=== PATIENT | male | born 1970 | race Hispanic/Latino ===

== ENCOUNTER 2021-08-21 10:43 | Emergency (ER) | payer SELFPAY ==
--- NOTE | 2021-08-21 11:17 | RAD REPORT ---
EXAM DESCRIPTION: RAD - Knee Right 3 View - 08/21/2021 11:12 am CLINICAL HISTORY: PAIN COMPARISON: No comparisons FINDINGS: No acute fracture or dislocation is seen.
--- NOTE | 2021-08-21 11:17 | RAD REPORT ---
EXAM DESCRIPTION: RAD - Knee Left 3 View - 08/21/2021 11:12 am CLINICAL HISTORY: PAIN COMPARISON: No comparisons FINDINGS: No fracture or dislocation seen.
--- NOTE | 2021-08-21 11:18 | RAD REPORT ---
EXAM DESCRIPTION: RAD - Ankle Right 3 View - 08/21/2021 11:12 am CLINICAL HISTORY: PAIN COMPARISON: No comparisons FINDINGS: Central depression type mildly comminuted calcaneus fracture is present. Subtalar dislocat ion is not evident.
[2021-08-21] MEDS ORDERED: MORPHINE 4 MG/ML SYR ONE (11:24)
[2021-08-21] MEDS ORDERED: ONDANSETRON 4 MG/2 ML VIAL ONE (11:24)
[2021-08-21 11:38] LABS: Absolute Lymphocytes (CBC) 1.6 K/uL (0.7-4.9); Hematocrit 41.2 % (39.6-49.0); Lymphocytes % 18.5 % (15.3-44.8); MPV 8.6 fL (7.6-11.3); RBC Red Blood Cell Count 4.62 M/uL (4.33-5.43)
[2021-08-21 11:57] LABS: Albumin 3.7 g/dL (3.4-5.0); Bilirubin Total 0.5 mg/dL (0.2-1.0); Potassium 3.7 mmol/L (3.5-5.1); Protein, Total 7.4 g/dL (6.4-8.2)
--- NOTE | 2021-08-21 12:41 | RAD REPORT ---
EXAM DESCRIPTION: CT - Knee Left Wo Con - 08/21/2021 12:20 pm CLINICAL HISTORY: Left knee pain and swelling status post fall COMPARISON: X-ray August 21, 2021 TECHNIQUE: Computed axial tomography left obtained All CT scans are performed using dose optimization technique as appropriate and may include automated exposure control or mA/KV adjustment according to patient size. FINDINGS: A minimally displaced fracture medial tibial plateau extending into the tibial spine. Moderate hemarthrosis No dislocation 2.2 centimeter lucency within the tibial plateau with a sclerotic border IMPRESSION: Minimally displaced tibial fracture 2.2 centimeter lucency within the tibial plateau with a sclerotic border may be the sequela of the fr acture or represent avascular necrosis or subchondral cyst
[2021-08-21] MEDS ORDERED: KETOROLAC 30 MG/ML INJ ONE (13:28)
--- NOTE | 2021-08-21 13:39 | EDPHYS ---
Physician Documentation [facility] Name: Rajesh Munoz Age: 50 yrs Sex: Male : 1970 Arrival Date: 08/21/2021 Time: 10:52 Bed 12 Private MD: ED Physician Kev Stratton HPI: 08/21 10:55 This 50 yrs old Male presents to ER via EMS with complaints of Left knee pain pm1 and right ankle pain. 10:55 Trauma demographics: Location of Injury: The injury occurred at work. Mechanism of pm1 injury: Fall: the patient fell Scaffolding, approximately approximately 8 feet, and struck a concrete surface. Associated injuries: The patient sustained right ankle and left knee. Onset: The symptoms/episode began/occurred just prior to arrival. The patient has not experienced similar symptoms in the past. The patient has not recently seen a physician. 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 Patient landed on his feet and presented to the ER with complaints of right ankle/foot pain and left knee pain. Patient without any complaints of back pain headache or neck pain. No head injury. No LOC. Historical: - Allergies: 10:58 Unable to obtain; ap3 - Home Meds: 10:58 Unable to obtain [Active]; ap3 - PMHx: 10:58 Unable to Obtain; ap3 - PSHx: 10:58 Unable to Obtain; ap3 - Immunization history:: Adult Immunizations unknown. - Social history:: Smoking status: unknown. ROS: 10:55 Constitutional: Negative for fever, chills, and weight loss, Neck: Negative for injury, pm1 pain, and swelling, Cardiovascular: Negative for chest pain, palpitations, and edema, Respiratory: Negative for shortness of breath, cough, wheezing, and pleuritic chest pain, Abdomen/GI: Negative for abdominal pain, nausea, vomiting, diarrhea, and constipation, Back: Negative for injury and pain. 10:55 Skin: Negative for injury, rash, and discoloration, Neuro: Negative for headache, weakness, numbness, tingling, and seizure. 10:55 MS/extremity: Positive for pain, of the left knee and right ankle. 10:55 All other systems are negative. Exam: 10:55 Constitutional: This is a well developed, well nourished patient who is awake, alert, pm1 and in no acute distress. Head/Face: Normocephalic, atraumatic. 10:55 Back: No spinal tenderness. No costovertebral tenderness. Full range of motion. Skin: Warm, dry with normal turgor. Normal color with no rashes, no lesions, and no evidence of cellulitis. 10:55 Eyes: Exam is negative for acute changes, Extraocular movements: no acute changes. 10:55 ENT: Exam is negative for acute changes, Mouth: no acute changes, Lips: normal, moist, Oral mucosa: normal, pink and intact, moist. 10:55 Neck: Exam negative for acute changes, External neck: no acute changes, C-spine: no acute changes, vertebral tenderness, is not appreciated, ROM/movement: no acute changes. 10:55 Chest/axilla: Exam negative for acute changes, Inspection: no acute changes, Palpation: no acute changes, tenderness, is not appreciated. 10:55 Cardiovascular: Exam negative for acute changes, Rate: normal, Rhythm: regular, Pulses: no pulse deficits are appreciated. 10:55 Respiratory: Exam negative for acute changes, respiratory distress, shortness of breath, Breath sounds: are clear throughout. 10:55 Abdomen/GI: Exam negative for acute changes, Inspection: abdomen appears normal, Palpation: abdomen is soft and non-tender, in all quadrants. 10:55 Musculoskeletal/extremity: Extremities: grossly normal except: noted in the left knee: pain, swelling, tenderness, noted in the right knee: tenderness, no evidence of decreased ROM, deformity, swelling, noted in the Right heel: tenderness, Noted in Right ankle: swelling, tenderness. 10:55 Neuro: Exam negative for acute changes, Orientation: is normal, Mentation: is normal, Motor: is normal, moves all fours. Vital Signs: 10:52 BP 128 / 92; Pulse 64; Resp 17; Temp 98.0; Pulse Ox 97% ; ap3 12:46 Resp 16; Pulse Ox 98% on R/A; Pain 8/10; ss 13:23 BP 132 / 91; Pulse 72; Resp 18; Pulse Ox 99% on R/A; ld1 MDM: 10:53 Patient medically screened. pm1 13:13 Data reviewed: vital signs. Data interpreted: Pulse oximetry: on room air is 98 %. pm1 Interpretation: normal. Counseling: I had a detailed discussion with the patient and/or guardian regarding: the historical points, exam findings, and any diagnostic results supporting the discharge/admit diagnosis, lab results, radiology results, the need for outpatient follow up, for definitive care, a orthopedic surgeon, to return to the emergency department if symptoms worsen or persist or if there are any questions or concerns that arise at home. 08/21 10:55 Order name: CBC with Diff; Complete Time: 12:03 pm1 08/21 10:55 Order name: CMP; Complete Time: 12:03 pm1 08/21 10:54 Order name: Ankle Right 3 View XRAY; Complete Time: 11:28 pm1 08/21 10:54 Order name: Knee Left 3 View XRAY; Complete Time: 11:28 pm1 08/21 10:54 Order name: Knee Right 3 View XRAY; Complete Time: 11:28 pm1 08/21 11:36 Order name: Knee Left Wo Con; Complete Time: 12:45 EDMS 08/21 10:55 Order name: IV Saline Lock; Complete Time: 10:58 pm1 08/21 12:49 Order name: Knee Immobilizer; Complete Time: 13:23 pm1 08/21 12:49 Order name: Walking boot; Complete Time: 13:23 pm1 08/21 12:59 Order name: Crutches; Complete Time: 13:23 pm1 Administered Medications: 11:28 Drug: morphine 4 mg Route: IVP; Infused Over: 4 mins; Site: right antecubital; ss 12:45 Follow up: Response: No adverse reaction ss 11:28 Drug: Zofran (Ondansetron) 4 mg Route: IVP; Site: right antecubital; ss 12:45 Follow up: Response: No adverse reaction ss 13:23 Drug: Ketorolac 30 mg Route: IVP; Site: right antecubital; ld1 Disposition Summary: 08/21/21 13:38 Discharge Ordered Location: Home pm1 Problem: new pm1 Symptoms: have improved pm1 Condition: Stable pm1 Diagnosis - Fracture of calcaneus - Closed right calcaneus central depression type mildly pm1 comminuted fracture - Closed left minimally displaced medial tibial plateau fracture pm1 Followup: pm1 - With: Emergency Department - When: As needed - Reason: Worsening of condition Followup: pm1 - With: Private Physician - When: 2 - 3 days - Reason: Recheck today's complaints, Continuance of care, Re-evaluation by your physician Followup: pm1 - With: Ravinder Lackey MD - When: 2 - 3 days - Reason: Recheck today's complaints, Continuance of care, Re-evaluation by your physician Followup: pm1 - With: Mick Vanegas MD - When: 2 - 3 days - Reason: Recheck today's complaints, Continuance of care, Re-evaluation by your physician Discharge Instructions: - Discharge Summary Sheet pm1 - Crutch Use, Adult pm1 - Tibial Fracture, Adult pm1 - Walking Boot, Adult pm1 Forms: - Medication Reconciliation Form pm1 - Thank You Letter pm1 - Antibiotic Education pm1 - Prescription Opioid Use pm1 Prescriptions: - Tylenol-Codeine #3 300 mg-30 mg Oral - take 2 tablet by ORAL route every 6 hours As needed; 20 tablet; Refills: 0, pm1 Product Selection Permitted - Diclofenac Sodium 75 mg Oral tablet,delayed release (DR/EC) - take 1 tablet by ORAL route 2 times per day As needed; 30 tablet; Refills: 0, pm1 Product Selection Permitted Signatures: Dispatcher [employer] Zoila Tong RN RN ss Marinas, Patrick, NP PATIENT RELATIONS MANAGER pm1 Alyssia Gomez RN RN ap3 Lios Rao RN RN ld1
--- NOTE | 2021-08-21 13:39 | ER ---
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 Patient reports pain in his right lower extremity, and is left knee. patient was brought in on backboard and c-collar by EMS. EMS administered 100mcg of fentanyl IV and started a liter bolus prior to arrival. Coronavirus screen: At this time, the client does not indicate any symptoms associated with coronavirus-19. Ebola Screen: No symptoms or risks identified at this time. Initial Sepsis Screen: Does the patient meet any 2 criteria? No. Patient's initial sepsis screen is negative. Does the patient have a suspected source of infection? No. Patient's initial sepsis screen is negative. Risk Assessment: Do you want to hurt yourself or someone else? Patient reports no desire to harm self or others. Onset of symptoms was August 21, 2021. 10:52 Method Of Arrival: EMS: [facility] ap3 10:52 Acuity: JODEE 3 ap3 10:55 Care prior to arrival: Cervical collar in place. Placed on backboard. Medication(s) ap3 given: Normal saline infusion, 1000 mL, 100 mcg fentanyl IV IV initiated. 20 GA, in the right antecubital area. Triage Assessment: 10:56 General: Appears uncomfortable, Behavior is calm, cooperative. Pain: Complains of pain ap3 in right leg and left knee. Cardiovascular: Patient's skin is warm and dry. Pulses are palpable in right dorsalis pedis artery and left dorsalis pedis artery. Respiratory: Airway is patent Respiratory effort is even, unlabored. Injury Description: fall from [employer]. Historical: - Allergies: 10:58 Unable to obtain; ap3 - Home Meds: 10:58 Unable to obtain [Active]; ap3 - PMHx: 10:58 Unable to Obtain; ap3 - PSHx: 10:58 Unable to Obtain; ap3 - Immunization history:: Adult Immunizations unknown. - Social history:: Smoking status: unknown. Screenin:57 Abuse screen: Denies threats or abuse. Nutritional screening: No deficits noted. ap3 Tuberculosis screening: No symptoms or risk factors identified. 14:18 Fall Risk Gait- Weak (10 pts.). ld1 Assessment: 11:30 General: Appears uncomfortable, Behavior is calm, cooperative. Pain: Complains of pain ss in right leg and left knee Pain currently is 10 out of 10 on a pain scale. Quality of pain is described as tender, throbbing. Neuro: Foley Agitation-Sedation Scale (RASS): 0 - Alert and Calm Level of Consciousness is awake, alert, obeys commands, Oriented to person, place, time, situation. Cardiovascular: Capillary refill < 3 seconds is brisk in bilateral fingers. Respiratory: Airway is patent Respiratory effort is even, unlabored, Respiratory pattern is regular, symmetrical. GI: Abdomen is round non-distended, Patient currently denies abdominal pain, nausea, vomiting. : No signs and/or symptoms were reported regarding the genitourinary system. Derm: Skin is intact, is healthy with good turgor, Skin is Skin is pink, warm \T\ dry. normal. Musculoskeletal: Circulation, motion, and sensation intact. Range of motion: intact in all extremities, Swelling absent. 13:23 Reassessment: Patient appears in no apparent distress at this time. Patient is alert, ld1 oriented x 3, equal unlabored respirations, skin warm/dry/pink. 14:18 Reassessment: Patient appears in no apparent distress at this time. Patient and/or ld1 family updated on plan of care and expected duration. Pain level reassessed. 14:18 Reassessment: Assisted pt to vehicle with family. ld1 Vital Signs: 10:52 BP 128 / 92; Pulse 64; Resp 17; Temp 98.0; Pulse Ox 97% ; ap3 12:46 Resp 16; Pulse Ox 98% on R/A; Pain 8/10; ss 13:23 BP 132 / 91; Pulse 72; Resp 18; Pulse Ox 99% on R/A; ld1 ED Course: 10:52 Patient arrived in ED. ap3 10:53 Santosh Roca NP is PHCP. pm1 10:53 Kev Stratton MD is Attending Physician. pm1 10:55 Triage completed. ap3 10:57 Patient has correct armband on for positive identification. Placed in gown. Bed in low ap3 position. Call light in reach. Side rails up X2. Pulse ox on. NIBP on. Door closed. Noise minimized. 10:57 Arm band placed on right wrist. ap3 10:58 Maintain EMS IV. Dressing intact. Good blood return noted. Site clean \T\ dry. Gauge \T\ ap 3 site: 20g right AC. 11:14 Ankle Right 3 View XRAY In Process Unspecified. EDMS 11:14 Knee Left 3 View XRAY In Process Unspecified. EDMS 11:14 Knee Right 3 View XRAY In Process Unspecified. EDMS 11:28 Zoila Wayne, NAVNEET is Primary Nurse. ss 12:22 Knee Left Wo Con In Process Unspecified. EDMS 13:23 No provider procedures requiring assistance completed. IV discontinued, intact, ld1 bleeding controlled, No redness/swelling at site. 13:43 Ravinder Lackey MD is Referral Physician. pm1 13:43 Mick Vanegas MD is Referral Physician. pm1 Administered Medications: 11:28 Drug: morphine 4 mg Route: IVP; Infused Over: 4 mins; Site: right antecubital; ss 12:45 Follow up: Response: No adverse reaction ss 11:28 Drug: Zofran (Ondansetron) 4 mg Route: IVP; Site: right antecubital; ss 12:45 Follow up: Response: No adverse reaction ss 13:23 Drug: Ketorolac 30 mg Route: IVP; Site: right antecubital; ld1 Medication: 11:30 VIS not applicable for this client. ss Outcome: 13:38 Discharge ordered by . pm1 14:18 Discharged to home with crutches, with family. ld1 14:18 Condition: stable 14:18 Discharge instructions given to patient, family, Instructed on discharge instructions, follow up and referral plans. medication usage, Demonstrated understanding of instructions, follow-up care, medications, Prescriptions given X 2. 14:19 Patient left the ED. ld1 Signatures: Dispatcher [employer] EDMS Zoila Wayne RN RN ss Santosh Roca, SOLAR PHOTOVOLTAIC DESIGNER SOLAR PHOTOVOLTAIC DESIGNER pm1 Alyssia Gomez RN RN ap3 Lois Rao, RN RN ld1
[2021-08-21 14:31] VITALS: TEMP 98
[2021-08-21 14:34] VITALS: BP 132/91; O2SAT 99
== END 2021-08-21 14:19 | disposition home or self-care (01) ==
LOC: ER 10:43
DX: S92.001A Unspecified fracture of right calcaneus, initial encounter for closed fracture (principal); S82.142A Displaced bicondylar fracture of left tibia, initial encounter for closed fracture
CPT/HCPCS: 36415; 73700; 80053; 85025; 96374; 96375; 99284; J2405